=== PATIENT | male | born 1970 | race Caucasian/White ===

== ENCOUNTER → 2017-01-17 | Outpatient (CLI) | payer MEDICAID ==
[~2017-01-17] MED LIST: FLEXERIL10 MG PO; HYDROCODONE/ACE1 TA5 PO; IBU800 M1 PO; LISINOPRIL 20MG20 MG PO; LORTAB 5/500 501 TAB PO; NOMEDS; PERCOCET 5/3251 EACH PO; XANAX 0.5MG TA0.5 MG PO
[2017-01-17 17:26] LABS: AMPHETAMINES/METAMPHETAMINES NEGATIVE ng/mL (<1000)
== END ==
LOC: LAB 16:57
PROVIDERS: Emergency Medicine
DX: Z79.899 Other long term (current) drug therapy (principal)